=== PATIENT | male | born 1960 | race Hispanic/Latino ===

== ENCOUNTER 2020-01-02 10:01 | Emergency (ER) | payer SELFPAY ==
--- NOTE | 2020-01-02 10:51 | RAD ---
2 VIEWS LEFT KNEE: Date: 01/02/2020 COMPARISON: None. HISTORY: Left knee pain. FINDINGS: 2 views of the left knee show no evidence of acute fracture or dislocation. There is a small knee eff usion. No significant degenerative changes are seen. IMPRESSION: Small knee effusion without underlying osseous abnormality. POS: [facility]
[2020-01-02] MEDS ORDERED: Cyclobenzaprine 10 MG TAB ONE (10:53)
[2020-01-02] MEDS ORDERED: Ibuprofen 200 MG TAB ONE (10:53)
== END 2020-01-02 11:31 | disposition home or self-care (01) ==
LOC: ERS 10:01
DX: S83.92XA Sprain of unspecified site of left knee, initial encounter (principal); F17.210 Nicotine dependence, cigarettes, uncomplicated; W19.XXXA Unspecified fall, initial encounter; Y93.A6 Activity, grass drills; Y92.096 Garden or yard of other non-institutional residence as the place of occurrence of the external cause; Y99.0 Civilian activity done for income or pay

== ENCOUNTER 2020-05-23 11:46 | Emergency (ER) | payer SELFPAY ==
[2020-05-23] MEDS ORDERED: Ketorolac Tromethamine 30 MG/ML VIAL ONE (12:48)
--- NOTE | 2020-05-23 13:11 | RAD ---
Exam: XR Knee Lt 4 View STANDARD HISTORY: Left knee pain after injury. COMPARISON: None FINDINGS: There is tricompartment osteophytosis. No fracture or dislocation is seen involving the left knee. There is a moderate sized joint effusion involving the suprapatellar region. Vascular calcification are seen posterior to the knee. IMPRESSION 1. Moderate joint effusion without acute osseous abnormality. MRI left knee is recommended for furthe r evaluation to evaluate for internal derangement. 2. Mild osteoarthritis.
--- NOTE | 2020-05-23 13:22 | RAD ---
LEFT LEG 2 VIEWS: Date: 05/23/2020 HISTORY: Injury. Left leg pain. FINDINGS/IMPRESSION: The left tibia and fibula are intact. Vascular calcifications are present. POS: [facility]
== END 2020-05-23 13:45 | disposition home or self-care (01) ==
LOC: ERS 11:46
DX: M25.562 Pain in left knee (principal); F17.210 Nicotine dependence, cigarettes, uncomplicated
CPT/HCPCS: 96372; J1885